=== PATIENT | female | born 1965 | race Two or more races ===

== ENCOUNTER → 2016-09-11 | Outpatient (CLI) | payer BC ==
--- NOTE | 2016-09-11 14:42 | RAD ---
DATE: 09/11/16 EXAM: DIGITAL SCREEN BILAT W/CAD HISTORY: Routine screening. COMPARISON: None available. Patient's previous mammogram was performed more than 10 years ago and is not available for comparison This study was interpreted with the benefit of Computerized Aided Detection (CAD). TECHNIQUE: CC and MLO views of both breasts are obtained. FINDINGS: The breast tissue density is [C ] . Heterogeneously dense breast parenchyma, this reduces the sensitivity of mammograms. There are 3 masslike opacities in the right breast in the upper outer quadrant and behind the nipple. There is also an area of asymmetric density in the left retroareolar region. There are no dominant suspicious masses, suspicious microcalcifications or evidence of architectural distortion. Skin and nipples are intact IMPRESSION: 1. Masslike abnormalities in the right breast. These may be evaluated by right breast ultrasound. 2. Asymmetric density in the left retroareolar region seen only on the MLO projection. Evaluation with 90 degrees mediolateral and spot compression MLO view as well as ultrasound may be of additional benefit. BI-RADS CATEGORY: 0 INCOMPLETE: NEED ADDITIONAL IMAGING EVALUATION AND/OR PRIOR MAMMOGRAMS FOR COMPARISON. RECOMMENDED FOLLOW-UP: ADD ADDITIONAL IMAGING PQRS compliance statement: Patient information was entered into a reminder system with a target due date for the next mammogram. Mammography is a sensitive method for finding small breast cancers, but it does not detect them all and is not a substitute for careful clinical examination. A negative mammogram does not negate a clinically suspicious finding and should not result in delay in biopsying a clinically suspicious abnormality. "Our facility is accredited by the [employer] Mammography Program."
== END | disposition home or self-care (01) ==
LOC: MAMMO 13:39
PROVIDERS: ATTEND Obstetrics & Gynecology
DX: Z12.31 Encounter for screening mammogram for malignant neoplasm of breast (principal)
CPT/HCPCS: G0202; 77067

== ENCOUNTER → 2016-09-22 | Outpatient (CLI) | payer BC ==
--- NOTE | 2016-09-22 12:01 | RAD ---
DATE: 09/22/2016 EXAM: DIGITAL DIAGNOSTIC LT, BREAST BILATERAL HISTORY: Suspicious screening study COMPARISON: None available CAD was utilized for this exam. On 09/11/2016 the screening mammograms demonstrated patchy fibroglandular type densities in the left breast. Today a spot compression oblique view was obtained of a density seen just inferior to the midline of the left breast on the original MLO view. This density spreads out and becomes less masslike on the spot compression view, similar to the other patchy fibroglandular shadows. The straight mediolateral view suggests this density lies at approximately the 9:00 location. Left breast ultrasound, 09/22/2016: A targeted ultrasound exam of the left breast centered at the 9:00 location was performed. There are heterogeneous fibroglandular shadows. No discrete cystic or solid breast mass is seen. Right breast ultrasound, 09/22/2016: History: Right breast nodules on mammography The recent mammograms demonstrated a 2.8 cm nodule at the 6:00 retroareolar level. Sonographic evaluation of that region demonstrated an oval-shaped structure with heterogeneous internal echoes. It is wider than it is tall. It is predominantly solid. This corresponds in location to the mammographic abnormality. It is contiguous with a 1.9 cm oval-shaped nodule in the lateral retroareolar region. This appears to correspond in location to the second nodule seen on the mammograms. This process demonstrates a similar echo pattern. There are other areas in the upper outer quadrant of the right breast which demonstrate a similar heterogeneous echo pattern, however, it is less discrete and masslike in configuration. These findings are probably due to fibrocystic disease. At the 9:30 location in the right breast, approximately 4-5 cm from the nipple, a tiny hypoechoic process was identified measuring 4 mm in greatest diameter. It demonstrates smooth margins. No significant posterior acoustic enhancement or shadowing is seen. The appearance is most compatible with a tiny cluster of complicated cysts. IMPRESSION: 1. The two retroareolar right breast nodules at 6:00 and 9:00 appear to correspond to a confluent area of heterogeneous solid tissue, likely fibrocystic in nature. Considering the masslike appearance of this process on the mammograms and absence of previous mammograms to document stability, ultrasound guided biopsy is suggested for further evaluation. 2. Tiny hypoechoic nodule at the 9:30 location in the right breast which probably represents a cyst cluster. 3. The mammographic density at the 9:00 location in the left breast most likely represents normal fibroglandular tissue. Mammographic surveillance on the left is suggested to confirm stability. Note: The patient was notified of the recommendation for biopsy at the time of the exam. BI-RADS CATEGORY: 4 SUSPICIOUS ABNORMALITY- BIOPSY SHOULD BE CONSIDERED RECOMMENDED FOLLOW-UP: BIO BIOPSY RECOMMENDED PQRS compliance statement: Patient information was entered into a reminder system with a target due date for the next mammogram. Mammography is a sensitive method for finding small breast cancers, but it does not detect them all and is not a substitute for careful clinical examination. A negative mammogram does not negate a clinically suspicious finding and should not result in delay in biopsying a clinically suspicious abnormality. "Our facility is accredited by the [employer] Mammography Program."
== END | disposition home or self-care (01) ==
LOC: MAMMO 09:58
PROVIDERS: ATTEND Obstetrics & Gynecology
DX: N63 Unspecified lump in breast (principal); R92.2 Inconclusive mammogram
CPT/HCPCS: 76641; G0206; 77065

== ENCOUNTER → 2016-11-06 | Outpatient (CLI) | payer BC ==
[~2016-11-06] VITALS: Ht 165.1 cm; Wt 61.2 kg
[~2016-11-06] MED LIST: LIDOCAINE 2%/EPI 1:100,000 20 ML VIAL. IJ ONE
[2016-11-06 08:38] VITALS: BP 131/80
--- NOTE | 2016-11-06 13:21 | RAD ---
Indication abnormalities seen on screening and diagnostic mammography for which biopsy had been advised. Note is made of recent diagnostic examinations targeted to the breasts and the recommendation for biopsy of findings at the 6 and 9:00 retroareolar positions of the right breast. Image guided biopsy was discussed with the patient. The risks of infection and bleeding were outlined. Small possibility of pneumothorax was also discussed. The patient understood the risks associated with the procedure and wished to proceed. Suspect masses at the 6 and 9:00 positions of the breasts were identified and reproduced. [employer] images were saved. The skin was prepped and draped in the routine fashion. Initially the 6:00 lesion was approached. Local anesthesia was accomplished with 1% lidocaine. A 14-gauge coaxial system was utilized. 4 samples were obtained. At the completion of the biopsy an S shaped marker was placed. Subsequently the lesion at the 9:00 position was approached. Again the skin was prepped and draped in the routine fashion. A separate tray was utilized. Local anesthesia was accomplished with 1% lidocaine. A second, separate. 14-gauge coaxial biopsy system was used and again 4 samples were obtained. The department only had 1 type of biopsy marking device and a second S shaped marker device was placed at the 9:00 position. Retrieved tissue was placed in separate formaldehyde containers and submitted to pathology. At the completion of the procedure conventional mammographic images were obtained. Clips appear appropriately positioned. The patient tolerated the procedure unremarkably. The biopsy sites were dressed in routine fashion and the patient discharged with appropriate instructions. IMPRESSION: Successful ultrasound-guided biopsy of 2 areas of concern in the right breast.
--- NOTE | 2016-11-09 15:29 | PATHOLOGY ---
PATHOLOGY REPORT * * * * * * * * FINAL DIAGNOSIS: A. Breast tissue, right breast 6:00 needle biopsy: - Stromal fibrosis. B. 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 COMMENT: There is no evidence of malignancy. Correlate with clinical and radiographic findings. (JPM:; d/t: 11/09/16) REPORT ELECTRONICALLY SIGNED BY: Zeeshan Urrutia M.D. DATE/TIME: 11/09/2016 15:29 * * * * * * * * GROSS PATHOLOGY: A. Received in formalin labeled "Hazel Louise, right breast 6," are multiple needle cores of yellow-duncan fibrofatty tissue measuring 1.5 x 0.6 x 0.1 cm in aggregate dimensions. The tissue is submitted in its entirety in cassette A1. The cold ischemic time is 5 minutes. The total formalin fixation time is 14 hours and 1 minutes. B. Received in formalin labeled "Hazel Louise, right breast 9," are multiple needle cores of yellow-duncan fibrofatty tissue measuring 1.2 x 0.6 x 0.1 cm in aggregate dimensions. The tissue is submitted in its entirety in cassette B1. The cold ischemic time is 5 minutes. The total formalin fixation time is 13 hours and 56 minutes. INITIAL CPT CODE(S): A; 13539 B; 05251 Professional services performed by [facility] [place] [address] Technical services performed by [facility] at [address] [place] [address], [facility] [address] [address]. SPECIMEN(S) RECEIVED: A.Right breast biopsy 6 B.Right breast biopsy 9 CLINICAL HISTORY: Right breast mass x 2 PATIENT: HAZEL LOUISE /AGE: 905/06/1965 (Age: 51) PATIENT #: [id number] ALT CASE #: SPECIMEN COLLECTION DATE: 11/06/2016 SPECIMEN RECEIVED DATE: 11/06/2016 [facility] - [address] [place] [address] - PHONE: [phone] * * * END OF REPORT * * *
== END | disposition home or self-care (01) ==
LOC: US 08:07
PROVIDERS: ATTEND Surgery
DX: N63 Unspecified lump in breast (principal)
CPT/HCPCS: 76942; C1713; G0206; 77065